=== PATIENT | male | born 1985 | race Caucasian/White ===

== ENCOUNTER 2022-04-03 20:49 | Emergency (ER) | payer MEDICAID ==
[~2022-04-03] VITALS: Ht 170.2 cm; Wt 80.7 kg
[2022-04-04] MEDS ORDERED: IBUP-2029 MT (04:26)
[2022-04-04] MEDS ORDERED: IBUPROFEN 600MG TABLET PO ONE (04:30)
[2022-04-04 04:48] VITALS: BP 135/89
== END 2022-04-04 04:54 | disposition home or self-care (01) ==
LOC: ER 20:49
DX: J06.9 Acute upper respiratory infection, unspecified (principal); R03.0 Elevated blood-pressure reading, without diagnosis of hypertension; Z20.822 Contact with and (suspected) exposure to COVID-19
CPT/HCPCS: 87426; 99283

== ENCOUNTER 2023-09-09 06:39 | Emergency (ER) | payer MEDICAID ==
[~2023-09-09] VITALS: Ht 170.2 cm; Wt 80.3 kg
[~2023-09-09 06:39] MED LIST: IBUP-2029 MT
[2023-09-09 07:14] VITALS: BP 150/100; PULSE 104; RESP 15; TEMP 98.6; O2SAT 98
[2023-09-09] MEDS ORDERED: TOPUD PO (09:15)
== END 2023-09-09 10:09 | disposition home or self-care (01) ==
LOC: ER 06:39
DX: B34.9 Viral infection, unspecified (principal); Z20.822 Contact with and (suspected) exposure to COVID-19; Z90.49 Acquired absence of other specified parts of digestive tract
CPT/HCPCS: 99284; 71045; 87426; 87430; 87070; 87804 ×2; C9803

== ENCOUNTER 2024-10-20 19:20 | Emergency (ER) | payer MEDICAID, OTHER ==
[~2024-10-20] VITALS: Ht 165.1 cm; Wt 73.0 kg
[~2024-10-20 19:20] MED LIST changes: +TOPUD PO
[2024-10-20 19:28] VITALS: BP 160/100; TEMP 98.2; O2SAT 98
[2024-10-20 19:35] VITALS: PULSE 103; O2SAT 100
[2024-10-20 23:47] LABS: BASOPHILS % 0.7 % (0.0-2.0); EOSINOPHILS % 3.6 % (0.0-5.0); HEMATOCRIT. 46.4 % (42.0-52.0); HEMOGLOBIN. 16.3 g/dL (14.0-18.0); LYMPHOCYTES % 29.5 % (20.0-50.0); MEAN CORPUSCULAR HEMOGLOBIN 31.3 pg (28.0-32.0); MEAN CORPUSCULAR HGB CONC 35.2 g/dL (31.0-37.0); MEAN CORPUSCULAR VOLUME 88.9 fL (80.0-94.0); MEAN PLATELET VOLUME 7.4 fl (7.4-10.4); MONOCYTES % 9.1 % (2.0-8.0); NEUTROPHILS % 57.1 % (40.0-76.0); PLATELET 236 x1000/uL (130-400); RED BLOOD CELL COUNT 5.21 mill/uL (4.7-6.1); RED CELL DISTRIBUTION WIDTH 13.2 % (11.6-14.6); WHITE BLOOD COUNT 9.3 x1000/uL (4.5-11.0)
[2024-10-21 00:12] LABS: CHLORIDE 109 mEq/L (98-107); POTASSIUM 3.7 mEq/L (3.5-5.1); SODIUM 142 mEq/L (136-145)
[2024-10-21 00:13] LABS: CARBON DIOXIDE 16 mEq/L (21-32)
[2024-10-21 00:14] LABS: CALCIUM 9.7 mg/dL (8.7-10.4)
[2024-10-21 00:18] LABS: CREATININE 0.9 mg/dL (0.6-1.3); GLUCOSE 117 mg/dL (70-105); UREA NITROGEN BLOOD 18 mg/dL (9-23)
[2024-10-21 00:29] LABS: TROPONIN I HIGH SENSITIVITY < 4 ng/L (3.0-53)
[2024-10-21] MEDS ORDERED: NAPR-1074 MT (01:46)
[2024-10-21 01:57] VITALS: RESP 18
[2024-10-21] MEDS: KETOROLAC 30MG/ML VIAL IM ONE (01:57)
== END 2024-10-21 02:02 | disposition home or self-care (01) ==
LOC: ER 19:20
DX: R07.89 Other chest pain (principal); I10 Essential (primary) hypertension; Z00.00 Encounter for general adult medical examination without abnormal findings; Z90.49 Acquired absence of other specified parts of digestive tract
CPT/HCPCS: 99285; 71045; 80048; 85025; 84484; 36415; 93005; 96372; J1885